=== PATIENT | male | born 1985 | race Hispanic/Latino ===

== ENCOUNTER 2023-08-15 16:59 | Emergency (ER) | payer BC ==
[~2023-08-15] VITALS: Ht 170.2 cm; Wt 99.8 kg
[2023-08-15 17:10] VITALS: BP 133/104; PULSE 130; RESP 20
== END 2023-08-15 18:04 | disposition admitted as inpatient to this hospital (09) ==
LOC: EDH 16:59
DX: I10 Essential (primary) hypertension (principal)
CPT/HCPCS: 99281